=== PATIENT | male | born 1970 | race Caucasian/White ===

== ENCOUNTER 2024-05-08 06:05 | Day surgery (SDC) | payer BC ==
[2024-05-02 15:37] VITALS: BMI 37.2
[2024-05-08] MEDS: IV FLUID CONTINUATION 1,000 ML IV ONE (06:45)
[2024-05-08] MEDS: LACTATED RINGERS 1,000 ML IV SCH (06:46)
[2024-05-08 06:50] VITALS: TEMP 98.3
[2024-05-08] MEDS ORDERED: ONDANSETRON 4 MG/2 ML VIAL IVP PRN (07:00)
[2024-05-08] MEDS ORDERED: PROPOFOL 10 MG/ML 20 ML VIAL IV ONE (07:01)
--- NOTE | 2024-05-08 07:21 | P.PCN ---
Date of Procedure: 05/08/24 Procedure(s) Performed: BRIEF HISTORY: Patient is a 53-year-old pleasant white male scheduled for an elective colonoscopy as a part of screening for colon cancer. PROCEDURE PERFORMED: Colonoscopy with snare polypectomy and snare polypectomy. PREOPERATIVE DIAGNOSIS: Screening for colon cancer. IV sedation per Anesthesia. PROCEDURE: After informed consent was obtained, the patient, was brought into the endoscopy unit. IV sedation was administered by Anesthesia under continuous monitoring. Digital rectal examination was normal. Initially the Olympus CF-160 flexible video colonoscope was then inserted in the rectum, gradually advanced into the cecum without any difficulty. Careful examination was performed as the scope was gradually being withdrawn. Ileocecal valve and the appendiceal orifice were visualized and appeared normal. Prep was excellent. Mucosa of the cecum, ascending colon, transverse colon, descending colon appeared normal. The sigmoid colon there was a 3 mm polyp that was removed by cold biopsy. In the distal rectum there was a 7 mm and 1 cm polyp removed by snare polypectomy. Scattered sigmoid diverticulosis seen. Rest of the, sigmoid colon, and rectum appeared normal. Retroflexion was performed in the rectum and no lesions were seen. The patient tolerated the procedure well. IMPRESSION: 3 mm sigmoid colon biopsies with cold biopsy 7 mm and 1 cm distal rectal polyp status post polypectomy Scattered sigmoid diverticula RECOMMENDATIONS: Findings of this examination were discussed with the patient as well as her family. He was advised to follow-up with the biopsy results. If the biopsy reveals adenoma he can have repeat colonoscopy in 3 years..
[2024-05-08 07:24] VITALS: RESP 16
[2024-05-08 07:38] VITALS: BP 146/77; PULSE 62
== END 2024-05-08 08:23 | disposition home or self-care (01) ==
LOC: ORWHC2ENDO 06:05
PROVIDERS: ATTEND Internal Medicine Gastroenterology
CPT/HCPCS: 45380; 45385; 88305